=== PATIENT | male | born 1945 | race Caucasian/White ===

== ENCOUNTER → 2019-10-23 07:57 | Outpatient (BNVA) | payer OTHER, SELFPAY | PROVIDERS: Family Provider Internal Medicine; Visit Provider Urology | DX: R97.20 Elevated prostate specific antigen [PSA] (principal) | CPT/HCPCS: 81001; 84153 ==

== ENCOUNTER → 2020-04-28 08:27 | Outpatient (BNVA) | payer OTHER, SELFPAY | PROVIDERS: Family Provider Internal Medicine; Visit Provider Urology | DX: R97.20 Elevated prostate specific antigen [PSA] (principal) | CPT/HCPCS: 81003; 84153 ==

== ENCOUNTER → 2020-11-03 07:55 | Outpatient (BNVA) | payer OTHER, SELFPAY | PROVIDERS: Family Provider Internal Medicine; PCP Family Medicine; Visit Provider Urology | DX: R97.20 Elevated prostate specific antigen [PSA] (principal) | CPT/HCPCS: 81003; 84153 ==

== ENCOUNTER → 2021-05-10 08:08 | Outpatient (BNVA) | payer OTHER, SELFPAY | PROVIDERS: Family Provider Internal Medicine; PCP Family Medicine; Visit Provider Nurse Practitioner Family | DX: R97.20 Elevated prostate specific antigen [PSA] (principal) | CPT/HCPCS: 81003; 84153 ==

== ENCOUNTER 2021-11-09 09:25 | Outpatient (CLI) | payer OTHER, SELFPAY | END 2021-11-09 09:26 | disposition home or self-care (01) | LOC: LAB 09:27 | PROVIDERS: Family Provider Internal Medicine; PCP Family Medicine; Visit Provider Urology | DX: R97.20 Elevated prostate specific antigen [PSA] (principal) | CPT/HCPCS: 51798; 81003; 84153; 99213 ==

== ENCOUNTER → 2022-07-15 09:17 | Outpatient (BNVA) | payer SELFPAY | PROVIDERS: Family Provider Internal Medicine; PCP Family Medicine; Visit Provider Urology | DX: R97.20 Elevated prostate specific antigen [PSA] (principal) | CPT/HCPCS: 84153 ==

== ENCOUNTER → 2022-07-19 08:32 | Outpatient (BNVA) | payer OTHER, SELFPAY | PROVIDERS: Family Provider Internal Medicine; PCP Family Medicine; Visit Provider Urology | DX: R97.20 Elevated prostate specific antigen [PSA] (principal); Z79.01 Long term (current) use of anticoagulants | CPT/HCPCS: 51798; 81003; 99213 ==

== ENCOUNTER 2023-08-07 07:56 | Outpatient (CLI) | payer OTHER, SELFPAY ==
--- NOTE | 2023-08-07 08:08 | CT_ITS ---
WS: [id number] CT chest wo con [id number] HISTORY: ABNORMAL CXR/FOLLOW UP ?PULMONARY NODULE TECHNIQUE: Axial imaging performed through the thorax. Coronal and sagittal reformats are submitted. All CT scans at [facility] use at least one of these dose optimization techniques: automated exposure control; mA and/or kV adjustment per patient size (includes targeted exams where dose is mat ched to clinical indication); or iterative reconstruction. CONTRAST: None DLP: 581.17 mGy.cm COMPARISON: None available. Lungs and central airway: Mild pulmonary hyperexpansion. There are a few scattered granulomata throug hout both lungs. 6 mm fissural nodule involving the RIGHT minor fissure. These are typically benign. There is an additional smaller 4 mm nodule along the LEFT major fissure. Dependent changes at the erika g bases. There is mild interstitial thickening at the lung bases and very slight groundglass attenuat ion. No mass or nodule. Pleura: Normal. No pleural effusion. Heart and pericardium: Normal size heart with no pericardial effusion. Mediastinum and jenni: No mediastinum or hilar adenopathy. Vessels: Mild atherosclerosis aorta. No aneurysm. Normal size pulmonary artery. Chest wall and lower neck: No soft tissue masses. Upper abdomen: Partially included gallbladder contains numerous stones. Low-attenuation 8 mm lesion R IGHT lobe of the liver too small to characterize but may represent a small benign cyst. Please note t his was identified on the prior study from 08/26/2018 without interval change. Also noted on that prio r study were cysts associated with the RIGHT kidney. There is a new hyperdense nodule exophytic from the superior pole LEFT kidney measuring 7 mm. No adrenal mass. Moderate sized hiatal hernia. Osseous structures: Mild anterior wedging of T8. No acute fracture. IMPRESSION: 1. Chronic emphysema. 2. Mild interstitial thickening at the lung bases may be early changes of interstitial lung disease. No honeycomb appreciated on this exam. 3. Bilateral perifissural nodules. Larger nodule measuring 6 mm along the RIGHT minor fissure. These are typically benign. 4. Scattered benign granulomata. 5. Cholelithiasis. 6. Moderate size hiatal hernia. 7. New hyperdense exophytic mass measuring 7 mm from the posterior LEFT kidney. Probably hemorrhagic cyst. This can be evaluated by ultrasound. May not be visible by ultrasound. 8. RIGHT hepatic cyst and RIGHT renal cyst.
== END 2023-08-07 07:57 | disposition home or self-care (01) ==
LOC: RAD 07:57
PROVIDERS: PCP Family Medicine; Visit Provider Family Medicine
DX: J43.9 Emphysema, unspecified (principal); R91.8 Other nonspecific abnormal finding of lung field
CPT/HCPCS: 71250

== ENCOUNTER 2023-09-04 09:16 | Outpatient (CLI) | payer OTHER, SELFPAY ==
--- NOTE | 2023-09-04 09:27 | USR_ITS ---
PROCEDURE INFORMATION: Exam: US Abdomen, Limited; Right Upper Quadrant Exam date and time: 09/04/2023 9:43 AM Age: 78 years old Clinical indication: Other: Ruq pain. Pain increased post consuming meals; Additional info: Ruq pain/pain worse after consuming meals TECHNIQUE: Imaging protocol: Real time ultrasound of the abdomen with image documentation. Limited exam focused on the right upper quadrant. COMPARISON: CT abdomen pelvis w con* [id number] 08/26/2018 12:14 PM FINDINGS: Liver: Hepatic steatosis.. No masses. Gallbladder: Cholelithiasis. Gallbladder wall is borderline at 3 mm. Biliary ducts: Normal. No stones. No dilation. Pancreas: Visualized pancreas is unremarkable. Right kidney: Right renal cysts are observed. US/US abdomen limited [id number] IMPRESSION: Cholelithiasis. Gallbladder is filled with stones.
--- NOTE | 2023-09-04 09:31 | USR_ITS ---
PROCEDURE INFORMATION: Exam: US Retroperitoneal; Complete; Kidneys and Bladder Exam date and time: 09/04/2023 9:56 AM Age: 78 years old Clinical indication: Abnormal findings; Mass, lump, or swelling; Kidney, left; Additional info: Right renal cyst/left renal mass TECHNIQUE: Imaging protocol: Real-time ultrasound of the retroperitoneum with image documentation. Complete exam focused on the kidneys and bladder. COMPARISON: US abdomen limited [id number] 09/04/2023 9:43 AM FINDINGS: Right kidney: Normal. No stones. No hydronephrosis. Multiple simple cysts. The largest cyst is 3.2 cm. Left kidney: Normal. No stones. No hydronephrosis. Multiple simple cysts. Urinary bladder: Unremarkable. US/US renal BI* [id number] IMPRESSION: 1. Unremarkable kidneys and bladder. 2. Bilateral renal cysts.
== END 2023-09-04 09:17 | disposition home or self-care (01) ==
LOC: RAD 09:16
PROVIDERS: PCP Family Medicine; Visit Provider Emergency Medicine Emergency Medical Services
DX: R10.11 Right upper quadrant pain (principal); N28.1 Cyst of kidney, acquired; K80.20 Calculus of gallbladder without cholecystitis without obstruction
CPT/HCPCS: 76705; 76770

== ENCOUNTER → 2023-09-12 14:42 | Outpatient (BNVA) | payer OTHER, SELFPAY | PROVIDERS: PCP Family Medicine; Referring Provider Family Medicine; Visit Provider Internal Medicine Cardiovascular Disease | DX: R06.02 Shortness of breath (principal); R07.9 Chest pain, unspecified; Z79.01 Long term (current) use of anticoagulants; R22.43 Localized swelling, mass and lump, lower limb, bilateral; I10 Essential (primary) hypertension; R94.31 Abnormal electrocardiogram [ECG] [EKG]; Z87.891 Personal history of nicotine dependence | CPT/HCPCS: 80048; 83880; 93005; 99204 ==

== ENCOUNTER 2023-09-22 07:37 | Outpatient (CLI) | payer OTHER, SELFPAY ==
[2023-09-22 07:46] VITALS: BMI 33.3
--- NOTE | 2023-09-22 07:49 | ECG_ITS ---
[facility] Test Date: 2023-09-22 Pat Name: Brendon Maravilla Department: Room: Gender: Male Senior Sales Consultant: : 1945 Requested By: Azeem Al Order Number: [id number] Patricia MD: Azeem Al M.D. Interpretive Statements NAME OF STUDY: LEXISCAN SESTAMIBI STRESS TEST INDICATION: Shortness of Breath; Abnormal EKG PROCEDURE: At the baseline, the EKG revealed sinus rhythm with a sinus arrhythmia. The baseline heart was 65 bpm with a blood pressue of 99/65 mm of Hg Lexiscan was infused over a period of 20 seconds. A total of 0.4 milligrams of Lexiscan was infused. The stress phase was continued for a total of 5 minutes. Heart rate at the end of the stress phase was 68 bpm with a blood pressure 99/65 mm of Hg. The EKG at the peak infusion revealed no significant changes. Sestamibi was injected 20 seconds after the Lexiscan infusion. Heart rate at the end of the recovery phase was 75 bpm with a blood pressure of 97/62 mm of Hg. CONCLUSION: 1. No significant EKG changes with the LexiScan infusion 2. No LexiScan induced chest pain or cardiac arrhythmia 3. Normal blood pressure and heart rate response 4. Sestamibi/sestamibi perfusion scan pending; see separate report. Electronically Signed On 10-02-2023 9:07:58 CDT by Azeem Al M.D. [id number]
--- NOTE | 2023-09-22 07:49 | NMCV_ITS ---
NM katerina perf SPECT r/s* [id number] Brendon Maravilla Age: 78 Gender: M : 1945 Exam Date: 09/22/2023 08:26 Ordering Phys: Azeem Al MD ([email or web address]) Technologist: YLDIA Bowling Exam Location: [facility] [place] Indications: DYSPNEA ON EXERTIONAL STRESS TEST Please see separate stress test report in [facility] for full findings IMAGE PROTOCOL Rest/Stress 1 Lexiscan Day Radiopharmaceutical Dose (mCi) Administration Site Administered by Rest: Tc-99m 10.6 IV LYDIA Pardo Sestamibi Stress:Tc-99m 32.4 IV LYDIA Pardo Sestamibi Rest: 22-Sep-2023 60 Discovery 630 Stress: 22-Sep-2023 30 Discovery 630 0.4mg Lexiscan. Supine position only as patient was unable to lay prone. SPECT RESULTS Technical Quality: Excellent Raw Data Analysis: Normal Image Corrections: No attenuation or motion correction applied Summed Stress Score: 6 Summed Rest Score: 11 Summed Difference Score: 1 PERFUSION FINDINGS Moderate area of moderately decreased tracer uptake involving the basal, mid and apical inferior and mid inferolateral region. Subtle area reversibility was noted in the basal inferior region. FUNCTIONAL RESULTS (calculated via Gated SPECT) Stress Image LV EF (%): 67 Stress EDV (mL):104 TID: 0.76 Stress ESV (mL):34 FUNCTIONAL FINDINGS: Segmental wall motion analysis revealing no gross wall motion abnormalities IMPRESSIONS 1. Myocardial perfusion imaging revealing moderate area of moderately decreased persistent tracer uptake in the inferior and inferolateral region with a subtle area of reversibility in the basal inferior region suggesting myocardial scarring mostly in the distribution of the right coronary artery with a very small area of possible justin-infarction ischemia. 2. Normal LV ejection fraction of 67%. 3. LV wall motion analysis revealing no gross wall motion abnormalities. 4. Normal LV volume No similar previous studies are available for comparison Dr Azeem Al MD FAC (Electronically Signed) Final Date: 22 September 2023 16:16 S
--- NOTE | 2023-09-22 08:45 | USCV_ITS ---
Brendon Maravilla Age: 78 Gender: M : 1945 Exam Date: 09/22/2023 08:31 Ordering Phys: Azeem Al MD ([email or web address]) Technologist: [place] [facility] [place]: sob BP: 130 / 89 HR: 73 Rhythm: Sinus Technical Quality: Adequate MEASUREMENTS (Male / Female) Normal Values 2D ECHO LVOT Diameter 2.2 cm LV Ejection Fraction MOD 2C 52.6 % LV Ejection Fraction 2C AL 52.7 % LA Diameter 4.6 cm RA Systolic Volume 4C AL 46.5 ml RA Systolic Volume 4C MOD 44.3 ml LA Sys Volume AL 61.8 cm cubed LA Sys Volume Index AL 24.3 cm cubed/m squared Aorta at Sinotubular Diameter 3.1 cm M-MODE LA Ao Ratio MM 1.3 AV Cusp Separation MM 2.1 cm DOPPLER AV Peak Velocity 147.0 cm/s LVOT Peak Velocity 80.0 cm/s AV Area Cont Eq vti 2.3 cm squared AV Area Cont Eq pk 2.1 cm squared MV Peak Velocity 84.0 cm/s MV Area PHT 2.7 cm squared Mitral E to A Ratio 0.9 TV Peak Velocity 180.0 cm/s TR Peak Velocity 240.0 cm/s TR Peak Gradient 23.0 mmHg TV Peak E Velocity 69.0 cm/s Right Atrial Pressure 3.0 mmHg Pulmonary Artery Systolic Pressu 26.0 mmHg PV Peak Velocity 160.5 cm/s FINDINGS Left Ventricle Normal left ventricular size and systolic function, EF 55%( visual).Grade I/IV diastolic dysfunction (abnormal relaxation filling pattern), normal to mildly elevated filling pressures. Abnormal septal motion consistent with conduction abnormality. Right Ventricle The right ventricle is normal in size and function. Right Atrium The right atrium is normal in size. Left Atrium The left atrium is normal in size. Mitral Valve Trace to mild mitral valve regurgitation. Aortic Valve Thickened aortic valve. Tricuspid Valve Trace tricuspid valve regurgitation. Estimated pulmonary artery peak systolic pressure 26 mmHg Pulmonic Valve Mild pulmonary valve regurgitation. Pericardium No pericardial effusion. Aorta Normal aortic annulus size. IVC The inferior vena cava appears normal. CONCLUSIONS Normal left ventricular size and systolic function, EF 55%( visual). Grade I/IV diastolic dysfunction (abnormal relaxation filling pattern), normal to mildly elevated filling pressures. Abnormal septal motion consistent with conduction abnormality. Trace to mild mitral valve regurgitation. Trace tricuspid valve regurgitation. Estimated pulmonary artery peak systolic pressure 26 mmHg There is no pericardial effusion. No previous study is available for comparison. Dr Azeem Al MD [facility] (Electronically Signed) Final Date: 24 September 2023 21:51 S
[2023-09-22] MEDS: regadenoson 0.4 Mg/5 ml Syringe 0.400000000000000022 MG IVP (10:34)
[2023-09-22 10:52] VITALS: BP 96/75; PULSE 62
== END 2023-09-22 07:38 | disposition home or self-care (01) ==
LOC: RAD 07:37
PROVIDERS: PCP Family Medicine; Visit Provider Internal Medicine Cardiovascular Disease
DX: R06.02 Shortness of breath (principal); R06.09 Other forms of dyspnea; R94.31 Abnormal electrocardiogram [ECG] [EKG]
CPT/HCPCS: 36415; 78452; 93017; 93306; 96374; A9500; J2785

== ENCOUNTER → 2023-12-12 09:06 | Outpatient (BNVA) | payer OTHER, SELFPAY | PROVIDERS: PCP Family Medicine; Visit Provider Nurse Practitioner Family | DX: I10 Essential (primary) hypertension (principal); Z87.891 Personal history of nicotine dependence | CPT/HCPCS: 99213 ==

== ENCOUNTER → 2024-07-24 10:05 | Outpatient (BNVA) | payer OTHER, SELFPAY | PROVIDERS: PCP Family Medicine; Visit Provider Internal Medicine Cardiovascular Disease | DX: R06.02 Shortness of breath (principal); Z79.01 Long term (current) use of anticoagulants; I10 Essential (primary) hypertension; Z86.718 Personal history of other venous thrombosis and embolism | CPT/HCPCS: 99213 ==

== ENCOUNTER 2025-03-26 11:42 | Emergency (ER) | payer OTHER, SELFPAY ==
[2025-03-26 11:56] VITALS: BP 183/105; PULSE 80; TEMP 36.6; O2SAT 94
--- NOTE | 2025-03-26 12:07 | XR_ITS ---
WS: [id number] XR ankle RT min 3V* [id number] REASON FOR EXAM: pain, swelling FINDINGS: No acute fracture. Joint spaces of the ankle are intact and relatively well preserved. XR/XR ankle RT min 3V* [id number] IMPRESSION: No significant bone or joint abnormality.
[2025-03-26 12:54] VITALS: BP 144/85; PULSE 72; RESP 16; TEMP 36.8; O2SAT 92
[2025-03-26 14:26] VITALS: BP 148/78; PULSE 72; RESP 16; TEMP 36.8; O2SAT 98
--- NOTE | 2025-03-26 15:42 | W.ED.EXTPRO ---
HPI - Extremity Problem General: Chief complaint: Extremity Problem,Nontraumatic Stated complaint: Pain in R ankle Time Seen by Provider: 03/26/25 11:49 History of Present Illness: 79 yo M with hx of prior gout, chronic bilateral lower-extremity edema, prior DVTs, hip replacement (2004, recalled metal implant per pt), and prior foot surgeries (toes/ligaments) presents with 5 weeks of worsening right ankle/foot pain. [facility] episode [facility]; pt reports prior gout episode lasted ~5 days. Current pain began in the foot, now localizes between heel and ankle, described as burning/?steam? pain; worse with weight-bearing but present at rest. Denies redness or increased warmth; chronic swelling of both feet/ankles baseline. No trauma or ankle roll. Reports prior [facility] x[facility] (results not available here). Pain reproduced with inversion over area consistent with anterior talofibular ligament (ATFL). Pt frustrated with persistent pain. ROS: denies fever; denies new redness/warmth; notes chronic edema; no known infection signs. Related Data Home Medications ?Medication ?Instructions ?Recorded ?Confirmed furosemide 40 mg tablet 40 mg PO DAILY 10/23/19 03/26/25 mirtazapine 45 mg tablet 45 mg PO DAILY 10/23/19 03/26/25 rivaroxaban 2.5 mg tablet (Xarelto) 2.5 mg PO BID 10/23/19 03/26/25 metoprolol succinate 25 mg 12.5 mg PO DAILY 09/12/23 03/26/25 tablet,extended release 24 hr simvastatin 20 mg tablet 20 mg PO DAILY 09/12/23 03/26/25 aspirin 81 mg tablet,delayed 81 mg PO DAILY 07/24/24 03/26/25 release (Adult Aspirin Regimen) buspirone 15 mg tablet 15 mg PO TID 03/26/25 03/26/25 calcium 600 mg (as 1 tab PO DAILY 03/26/25 03/26/25 carbonate)-vitamin D3 5 mcg (200 unit) tablet colchicine 0.6 mg tablet 0.6 mg PO DAILY 03/26/25 03/26/25 folic acid 0.8 mg capsule 0.8 mg PO DAILY 03/26/25 03/26/25 lisinopril 20 mg tablet 20 mg PO DAILY 03/26/25 03/26/25 magnesium oxide 400 mg PO DAILY 03/26/25 03/26/25 multivitamin 1 tab PO DAILY 03/26/25 03/26/25 polyvinyl alcohol-povidone 0.5 1 drp ophthalmic (eye) TID PRN dry 03/26/25 03/26/25 %-0.6 % eye drops (Artificial eyes Tears (polyvinyl alcohol/povidone)) probenecid 500 mg tablet 500 mg PO BID 03/26/25 03/26/25 ropinirole 0.5 mg tablet 0.5 mg PO TID 03/26/25 03/26/25 spironolactone 25 mg tablet 25 mg PO DAILY 03/26/25 03/26/25 Allergies Allergy/AdvReac Type Severity Reaction Status Date / Time No Known Allergies Allergy Verified 07/24/24 10:35 PFS ED PFSH: Medical History (Updated 03/26/25 @ 13:31 by Ha Thomas DO) Hyperlipemia Hypertension Elevated PSA Surgical History S/P tendon repair S/P hip replacement Family History Mother , 58 Stroke Heart disease Father , 89 CAD (coronary artery disease) Heart disease Social History Smoking and tobacco/nicotine status: former use of tobacco/nicotine (quit 1986) Alcohol intake: never Substance/Drug Use: never Adopted: No Caregiver/support person: No Lives independently: Yes Marital status: Current occupational status: disabled Current gender identity: Male Physical Exam Const: COMMON NORMALS: no acute distress, patient oriented x3 and alert HENMT: COMMON NORMALS: normocephalic and atraumatic HEAD & SCALP: normocephalic and atraumatic Eye: COMMON NORMALS: Equal, round and reactive pupils present, EOMs intact bilaterally and no scleral icterus PUPIL: Yes Equal, round and reactive pupils present Resp: COMMON NORMALS: normal respiratory effort and No retractions Cardio: COMMON NORMALS: regular rate, regular rhythm and No murmurs present (Cardio) RATE: regular rate RHYTHM: regular rhythm GI: COMMON NORMALS: Normal to inspection, nondistended, normoactive bowel sounds present, Soft to palpation and non-tender PALPATION: Yes Soft to palpation Extremity: OTHER: Extremities: 1+ pitting edema of feet/legs to mid-hillman bilaterally. Pain reproducible with inversion of right ankle, focal over ATFL region. No tenderness to palpation of either foot reported. Neuro: COMMON NORMALS: patient oriented x3 SENSORIUM/ORIENTATION: Yes alert Skin: COMMON NORMALS: no rashes or lesions noted GENERAL SKIN EXAM: no rashes or lesions noted Course Vital Signs: Vital signs: Vital Signs Temperature 98.2 F 03/26/25 14:26 Pulse Rate 72 03/26/25 14: Respiratory Rate 16 03/26/25 14: Blood Pressure 148/78 03/26/25 14: Pulse Oximetry 98 03/26/25 14: Oxygen Delivery Me thod Room Air 03/26/25 12:54 MDM - Extremity (Nontraumatic) Medical Decision Making 79 yo M with 5 weeks of right ankle/foot pain initially treated as gout, now burning and worse with weight-bearing; hx gout, prior DVTs, chronic edema, hip replacement, prior foot surgeries. PE: 1+ bilateral lower extremity edema to mid-hillman, no erythema/warmth/tenderness, strong distal pulses, pain reproduced with inversion over right ATFL region. X-ray of the right ankle shows no acute fracture or dislocation. ATFL strain/sprain suspected given point tenderness and reproduction with inversion. Gout less likely without classic redness/heat and prolonged course. Infection unlikely given absence of warmth/redness. Fracture less likely without trauma and prior x-ray consideration; results unavailable. DVT discussed historically; current focal ankle pain without inflammatory changes argues against acute DVT. Plan: Obtain right ankle/foot x-ray today for podiatry review. Podiatry referral for definitive evaluation and management. Consider protective boot for motion minimization and analgesics for pain control pending specialist input. Lab Data Radiology Impressions Ankle X-Ray 03/26/25 12:07 IMPRESSION: No significant bone or joint abnormality. All radiology interpretation(s) finalized by discharge Discharge Plan Discharge Patient Disposition: Home Clinical Impression: Acute right ankle pain Condition: Stable Prescriptions: No Action Xarelto 2.5 mg tablet 2.5 mg PO BID furosemide 40 mg tablet 40 mg PO DAILY mirtazapine 45 mg tablet 45 mg PO DAILY metoprolol succinate 25 mg tablet extended release 24 hr 12.5 mg PO DAILY simvastatin 20 mg tablet 20 mg PO DAILY aspirin [Adult Aspirin Regimen] 81 mg tablet,delayed release (DR/EC) 81 mg PO DAILY multivitamin Tablet 1 tab PO DAILY lisinopril 20 mg Tablet 20 mg PO DAILY calcium carbonate-vitamin D3 [Calcium + D] 600 mg-5 mcg (200 unit) Tablet 1 tab PO DAILY spironolactone 25 mg Tablet 25 mg PO DAILY ropinirole 0.5 mg Tablet 0.5 mg PO TID colchicine 0.6 mg Tablet 0.6 mg PO DAILY probenecid 500 mg Tablet 500 mg PO BID buspirone 15 mg Tablet 15 mg PO TID Artificial Tears(pvalch-povid) 0.5-0.6 % Drops 1 drp OPHTHALMIC (EYE) TID PRN (Reason: dry eyes ) folic acid 0.8 mg Capsule 0.8 mg PO DAILY magnesium oxide 400 mg magnesium Tablet 400 mg PO DAILY Discharge Orders: Discharge ED (Routine); Ordered 03/26/25 Ordered By: Ha Thomas Other Ambulatory Orders: DME: Miscellaneous (Order) Location: None Selected Ordered By: Ha Thomas DME: Miscellaneous (Order) Location: None Selected Ordered By: Ha Thomas Referrals: Viola Reynolds MD [Primary Care Provider, Family Practice] Marlo Longoria DPM [Physician, Podiatry] Referral Note: multiple foot surgeries, 5 weeks right ankle pain, no trauma/obvious infection Clinical Impression: Acute right ankle pain Patient Instructions: Arthralgia (ED), Patient Portal & Terrell Instructions Activity Restrictions/Additional Instructions: The x-ray today of your ankle shows no obvious fracture or dislocation of the ankle or foot. Your pain seems to be in the anterior joint space of the ankle and overlying the anterior talofibular ligament. There is no redness or warmth to imply infection or ongoing gouty process. If the walking boot is helpful, please use it but if not you do not need to use it. Please follow-up closely with the material liaison. Print Language: Indonesian Coding Level of Care Code ED Environmental Engineering Professor for Abigail Huitron
== END 2025-03-26 14:27 | disposition home or self-care (01) ==
PROVIDERS: Emergency Provider Student in an Organized Health Care Education/Training Program; PCP Family Medicine
DX: M25.571 Pain in right ankle and joints of right foot (principal); Z79.82 Long term (current) use of aspirin; Z87.891 Personal history of nicotine dependence; E78.5 Hyperlipidemia, unspecified; I10 Essential (primary) hypertension
CPT/HCPCS: 73610; 99283

== ENCOUNTER → 2025-04-09 10:41 | Outpatient (BNVA) | payer OTHER, SELFPAY | PROVIDERS: PCP Family Medicine; Visit Provider Podiatrist Foot & Ankle Surgery | DX: M79.671 Pain in right foot (principal); M25.571 Pain in right ankle and joints of right foot | CPT/HCPCS: 73610; 73630; 99203 ==